=== PATIENT | male | born 1995 | race African-American/Black ===

== ENCOUNTER 2019-06-22 11:02 | Emergency (ER) | payer OTHER ==
[2019-06-22] MEDS ORDERED: ONDANSETRON 4 MG/2 ML VIAL IVP STA (11:37)
[2019-06-22] MEDS ORDERED: SODIUM CHLORIDE 0.9% 1,000 ML IV ONE (11:37)
--- NOTE | 2019-06-22 11:37 | ED Physician Documentation ---
History of Present Illness - Stated complaint Stated Complaint: VOMITING BLOOD/DIZZY - Chief complaint Chief Complaint: Abd Pain - Additonal information Additional information: This is a 24-year-old male who presents with nausea, vomiting, as well as some blood in his vomit. Patient began having cough, runny nose, vomiting and loose stool several days ago, the vomiting usually occurs in the morning and then improves. Today when he vomited he noticed some bright red blood at the end of his vomiting. He also has had some dark or black stools. He has not noticed any blood in his stool. He denies abdominal pain. He was seen by his primary care provider who sent him here for further evaluation. Review of Systems Nose: reports: Rhinorrhea / runny nose Cardiac: denies: Chest pain / pressure Respiratory: reports: Cough GI: reports: Nausea, Vomiting : denies: Dysuria Skin: denies: Rash Neurologic: denies: Generalized weakness Immunocompromised: denies: Immunocompromised PD PAST MEDICAL HISTORY - Past Medical History Past Medical History: No Cardiovascular: None Respiratory: None Neuro: None Endocrine/Autoimmune: None GI: None : None HEENT: None Psych: None Musculoskeletal: None Derm: None - Past Surgical History Past Surgical History: No - Present Medications Home Medications: Ambulatory Orders Medication Instructions Recorded Confirmed Ondansetron Odt [Zofran] 4 mg TL Q6H PRN #10 tablet 06/22/19 - Allergies Allergies/Adverse Reactions: Allergies Allergy/AdvReac Type Severity Reaction Status Date / Time No Known Drug Allergies Allergy Verified 06/22/19 11:08 - Social History Does the pt smoke?: No Smoking Status: Never smoker Does the pt drink ETOH?: No Does the pt have substance abuse?: No - Immunizations Immunizations are current?: Yes - POLST Patient has POLST: No PD ED PE NORMAL - Vitals Vital signs reviewed: Yes - General General: Alert and oriented X 3 - HEENT HEENT: Atraumatic - Neck Neck: Supple, no meningeal sign - Cardiac Cardiac: Other (Regular rate in 80s on my exam, regular rhythm) - Respiratory Respiratory: No respiratory distress, Clear bilaterally - Abdomen Abdomen: Soft, Non tender, Non distended - Rectal Rectal: Other (Small amount of guaiac negative light brown stool in the rectal vault, no masses, no hemorrhoids.) - Derm Derm: Warm and dry - Extremities Extremities: No deformity - Neuro Neuro: Alert and oriented X 3 Results - Vitals Vitals: Oxygen O2 Source Room air - Labs Labs: Laboratory Tests 06/22/19 06/22/19 06/22/19 11:18 13:14 13:14 WBC 6.5 RBC 5.03 Hgb 14.6 Hct 43.2 MCV 85.9 MCH 29.0 MCHC 33.8 RDW 11.8 L Plt Count 168 MPV 9.3 Neut # (Auto) 4.3 Lymph # (Auto) 1.2 L [place] # (Auto) 0.8 Eos # (Auto) 0.1 Baso # (Auto) 0.0 Absolute Nucleated RBC 0.00 Nucleated RBC % 0.0 PT 16.2 H INR 1.5 H Sodium Potassium Chloride Carbon Dioxide Anion Gap BUN Creatinine Estimated GFR (MDRD) Glucose Calcium Total Bilirubin AST ALT Alkaline Phosphatase Total Protein Albumin Globulin Albumin/Globulin Ratio Lipase Urine Color YELLOW Urine Clarity CLEAR Urine pH 7.5 Ur Specific [place] 1.010 Urine Protein NEGATIVE Urine Glucose (UA) NEGATIVE Urine Ketones TRACE Urine Occult Blood NEGATIVE Urine Nitrite NEGATIVE Urine Bilirubin NEGATIVE Urine Urobilinogen 0.2 (NORMAL) Ur Leukocyte Esterase NEGATIVE Ur Microscopic Review NOT INDICATED Urine Culture Comments NOT INDICATED 06/22/19 13:14 WBC RBC Hgb Hct MCV MCH MCHC RDW Plt Count MPV Neut # (Auto) Lymph # (Auto) [place] # (Auto) Eos # (Auto) Baso # (Auto) Absolute Nucleated RBC Nucleated RBC % PT INR Sodium 137 Potassium 4.3 Chloride 103 Carbon Dioxide 28 Anion Gap 6.0 BUN 15 Creatinine 1.0 Estimated GFR (MDRD) 110 Glucose 100 Calcium 8.6 Total Bilirubin 0.7 AST 16 ALT 14 Alkaline Phosphatase 45 Total Protein 7.3 Albumin 4.0 Globulin 3.3 Albumin/Globulin Ratio 1.2 Lipase 32 Urine Color Urine Clarity Urine pH Ur Specific [place] Urine Protein Urine Glucose (UA) Urine Ketones Urine Occult Blood Urine Nitrite Urine Bilirubin Urine Urobilinogen Ur Leukocyte Esterase Ur Microscopic Review Urine Culture Comments PD MEDICAL DECISION MAKING - ED course Complexity details: considered differential (Viral syndrome, gastroenteritis, GI bleed, sandra edwards tear, hemorrhoids) ED course: Pt is well appearing on exam, he was tachycardia in triage but this resolved spontaneously. Labs are unremarkable with normal WBC and Hgb. He has a benign abdominal exam without tenderness or signs of acute abdominal pathology and no signs of blood in his stool. He has had no vomiting while in the ED. He appears to have a viral syndrome, and after several episodes of vomiting likely developed a small sandra edwards tear. He is feeling well and should respond well to supportive care. I discussed return precuations and PCP follow up and patient was discharged with a prescription for zofran. Departure - Departure Disposition: 01 Home, Self Care Clinical Impression: Viral syndrome Hematemesis Qualifiers: Nausea presence: with nausea Qualified Code(s): K92.0 - Hematemesis Condition: Good Instructions: ED Nausea Vomiting Prescriptions: Ondansetron Odt [Zofran] 4 mg TL Q6H PRN #10 tablet PRN Reason: Nausea / Vomiting Comments: You were seen today for vomiting. We do not see signs of blood in your stool. Your hemoglobin was 14.6 and your white blood cell count was 6.5 (both normal). Your electrolytes and urine test were normal. The blood in your vomit is likely a Sandra-Edwards tear, or small tear in the lining of your throat from repeated episodes of vomiting. Overall I think you likely have a virus which is causing your symptoms. You may take the Zofran as prescribed for nausea/vomiting, as well as Tylenol and/or ibuprofen for discomfort and fever. If you are developing worsening symptoms, abdominal pain, or persistent vomiting despite the Zofran, please return to the emergency department. Discharge Date/Time: 06/22/19 14:09
[2019-06-22 11:51] LABS: BILIRUBIN,URINE NEGATIVE (NEGATIVE); GLUCOSE, URINE (UA) NEGATIVE (NEGATIVE); KETONES,URINE (UA) TRACE mg/dL (NEGATIVE); LEUKOCYTE ESTERASE, URINE NEGATIVE (NEGATIVE); NITRITE,URINE NEGATIVE (NEGATIVE); OCCULT BLOOD,URINE NEGATIVE (NEGATIVE); PH,URINE 7.5 PH (5.0-7.5); PROTEIN,URINE NEGATIVE (NEGATIVE); UROBILINOGEN,URINE 0.2 (NORMAL) E.U./dL (NORMAL)
[2019-06-22 11:54] LABS: CLARITY,URINE CLEAR (CLEAR)
[2019-06-22 13:18] LABS: BASOPHILS % (AUTO) 0.3 %; EOSINOPHILS # (AUTO) 0.1 10^3/uL (0.0-0.7); EOSINOPHILS % (AUTO) 1.8 %; HGB - HEMOGLOBIN 14.6 g/dL (14.0-18.0); LYMPHOCYTES # (AUTO) 1.2 10^3/uL (1.5-3.5); MEAN CORPUSCULAR HGB CONC 33.8 g/dL (32.0-36.0); MEAN CORPUSCULAR VOLUME 85.9 fL (80.0-94.0); MEAN PLATELET VOLUME 9.3 fL (7.4-11.4); MONOCYTES # (AUTO) 0.8 10^3/uL (0.0-1.0); MONOCYTES % (AUTO) 12.7 %; NEUTROPHILS # (AUTO) 4.3 10^3/uL (1.5-6.6); PLT - PLATELET COUNT 168 10^3/uL (130-450); RED BLOOD COUNT 5.03 10^6/uL (4.70-6.10); RED CELL DISTRIBUTION WIDTH 11.8 % (12.0-15.0); WHITE BLOOD COUNT 6.5 x10^3/uL (4.8-10.8)
[2019-06-22 13:33] LABS: ALBUMIN/GLOBULIN RATIO 1.2 (1.0-2.2); BILIRUBIN,TOTAL 0.7 mg/dL (0.2-1.0); CALCIUM 8.6 mg/dL (8.5-10.3); TOTAL PROTEIN 7.3 g/dL (6.7-8.2)
[2019-06-22 13:38] LABS: INR 1.5 (0.8-1.2); PT - PROTHROMBIN TIME 16.2 secs (9.9-12.6)
[2019-06-22 14:10] VITALS: BP 122/66
== END 2019-06-22 14:09 | disposition home or self-care (01) ==
LOC: ED 11:02
DX: B34.9 Viral infection, unspecified (principal); K92.0 Hematemesis
CPT/HCPCS: 36415; 80053; 81001; 81003; 83690; 85025; 85610; 87086; 96374; 99283

== ENCOUNTER 2020-03-04 19:34 | Emergency (ER) | payer OTHER ==
[2020-03-04] MEDS ORDERED: SUCRALFATE 1 GM/10 ML UDC PO STA (20:19)
[2020-03-04] MEDS ORDERED: LIDOCAINE VISCOUS 2% 15 ML UDC MM STA (20:19)
[2020-03-04] MEDS ORDERED: MAG HYDROX/AL HYDROX/SIMETH 30 ML UDC PO STA (20:19)
--- NOTE | 2020-03-04 20:27 | ED Physician Documentation ---
History of Present Illness - Stated complaint Stated Complaint: CP - Chief complaint Chief Complaint: Cardiac - History obtained from History obtained from: Patient - History of Present Illness Timing: Today Pain level max: 6 Pain level now: 4 - Additonal information Additional information: States chest pain, feeling like a balloon blowing up in his chest after eating a pot pie today. States vomiting helped. Currently feeling better. No dyspnea. No cardiac history. Nothing makes it worse. No medications at home. Does use caffeinated pre-workout powder regularly. No recent travel. No recent surgery. No recent antibiotics. No history of blood clots. Review of Systems Constitutional: denies: Fever, Chills Nose: denies: Rhinorrhea / runny nose, Congestion Throat: denies: Sore throat Cardiac: denies: Palpitations Respiratory: denies: Dyspnea, Cough, Hemoptysis, Wheezing GI: denies: Nausea, Vomiting, Diarrhea Skin: denies: Rash Musculoskeletal: denies: Neck pain, Extremity pain Neurologic: denies: Focal weakness, Numbness, Head injury PD PAST MEDICAL HISTORY - Past Medical History Past Medical History: No Cardiovascular: None Respiratory: None Neuro: None Endocrine/Autoimmune: None GI: None : None HEENT: None Psych: None Musculoskeletal: None Derm: None - Past Surgical History Past Surgical History: No - Present Medications Home Medications: Ambulatory Orders Medication Instructions Recorded Confirmed Ondansetron Odt [Zofran] 4 mg TL Q6H PRN #10 tablet 06/22/19 - Allergies Allergies/Adverse Reactions: Allergies Allergy/AdvReac Type Severity Reaction Status Date / Time No Known Drug Allergies Allergy Verified 06/22/19 11:08 - Social History Does the pt smoke?: No Smoking Status: Never smoker Does the pt drink ETOH?: No Does the pt have substance abuse?: No - Immunizations Immunizations are current?: Yes - POLST Patient has POLST: No PD ED PE NORMAL - Vitals Vital signs reviewed: Yes - General General: Alert and oriented X 3, No acute distress, Well developed/nourished - HEENT HEENT: PERRL, Moist mucous membranes - Neck Neck: Supple, no meningeal sign - Cardiac Cardiac: RRR, No murmur, Strong equal pulses - Respiratory Respiratory: No respiratory distress, Clear bilaterally - Abdomen Abdomen: Soft, Non tender, Non distended - Derm Derm: Warm and dry - Extremities Extremities: No edema, No calf tenderness / cord - Neuro Neuro: Alert and oriented X 3 - Psych Psych: Normal mood, Normal affect Results - Vitals Vitals: Vital Signs - 24 hr 03/04/20 03/04/20 19:43 20:55 Temperature 36.6 C Heart Rate 104 H 91 Respiratory 16 18 Rate Blood Pressure 146/68 H 114/61 O2 Saturation 99 98 Oxygen O2 Source Room air - EKG (time done) 1940 Rate: Rate (enter#) (101) Rhythm: Sinus tachycardia [place]: Normal Intervals: Normal ID QRS: Normal Ischemia: Normal ST segments PD MEDICAL DECISION MAKING - ED course Complexity details: reviewed results, re-evaluated patient, considered differential (No ST elevation RI, no aortic dissection, no PE, no tension pneumothorax, no aortic aneurysm), d/w patient ED course: Symptoms fully resolved with GI cocktail. Tolerated well. Normal examination here. We will have him avoid caffeinated foods, fatty foods and alcohol. No evidence of cholecystitis. No evidence of PE. No evidence of acute coronary syndrome. No cardiac murmur. No evidence of HOCM. Patient counseled regarding signs and symptoms for which I believe and urgent re-evaluation would be necessary. Patient with good understanding of and agreement to plan and is comfortable going home at this time This document was made in part using voice recognition software. While efforts are made to proofread this document, sound alike and grammatical errors may occur. Departure - Departure Disposition: 01 Home, Self Care Clinical Impression: Chest pain Qualifiers: Chest pain type: unspecified Qualified Code(s): R07.9 - Chest pain, unspecified Condition: Good Instructions: ED Chest Pain Atypical Unkn Cause Follow-Up: your,doctor next week [Other] Comments: Return if you worsen. Follow-up with your doctor next week for further evaluation and care. Your EKG is normal. I do not hear a murmur on your evaluation today. Your doctor may want to perform a echocardiogram next week. Discharge Date/Time: 03/04/20 20:58
[2020-03-04 20:55] VITALS: BP 114/61
== END 2020-03-04 20:58 | disposition home or self-care (01) ==
LOC: ED 19:34
DX: R07.9 Chest pain, unspecified (principal)
CPT/HCPCS: 93005; 99283; 99284; A9270

== ENCOUNTER 2021-10-11 07:13 | Outpatient (CLI) | payer OTHER ==
--- NOTE | 2021-10-11 08:57 | MRI Report ---
PROCEDURE: Shoulder LT W/O INDICATIONS: OSTEOLYSIS TECHNIQUE: Noncontrast oblique coronal T2 fast spin echo with fat saturation, oblique sagittal T1 spin echo and T2 fast spin echo with fat saturation, axial T1 spin echo and T2 fast spin echo with fat saturation t hrough the shoulder. COMPARISON: None. FINDINGS: Image quality: Excellent. Rotator cuff: The supraspinatus, infraspinatus, and subscapularis tendons appear intact throughout. No rotator cuff muscle atrophy on sagittal images. Bones and bursae: No bone marrow contusions or fractures. Mild acromioclavicular joint degeneration. The acromion demonstrates conventional anatomy, without an os acromiale. No pathologic subacromial /subdeltoid bursal fluid is present. Capsule and soft tissues: In the absence of intra-articular contrast, the labrum and glenohumeral li gaments appear intact. The long head of the biceps tendon demonstrates normal location and morpholog y. The rotator interval appears normal, without fibrosis. The coracohumeral ligament is normal in t hickness. IMPRESSION: 1. Acromioclavicular joint osteoarthritis. 2. No rotator cuff tear. Reviewed by: Abiola Parisi MD on 10/11/2021 8:55 AM PST Approved by: Abiola Parisi MD on 10/11/2021 8:55 AM PST Station ID: [id number]
== END 2021-10-11 07:14 | disposition home or self-care (01) ==
LOC: DI 07:13
PROVIDERS: ATTEND Orthopaedic Surgery
DX: M89.512 Osteolysis, left shoulder (principal); M19.012 Primary osteoarthritis, left shoulder

== ENCOUNTER 2021-10-26 18:40 | Emergency (ER) | payer OTHER ==
[2021-10-26] MEDS ORDERED: DEXAMETHASONE 10 MG/ML VIAL IM STA (19:00)
--- NOTE | 2021-10-26 19:06 | ED Physician Documentation ---
History of Present Illness - Stated complaint Stated Complaint: SOA - Chief complaint Chief Complaint: Resp - Additonal information Additional information: 26-year-old male presents to the emergency department for evaluation of difficulty breathing. He did undergo left clavicle surgery today at [facility] in [place]. He did require general endotracheal anesthesia. He states that when he lays flat he feels like his airway closes shut, but sitting upright, he does not have this concern. Denies any history of difficulty with anesthesia. No pertinent past medical history. Currently taking opiate narcotic as well as stool softener and Zofran for nausea.. Review of Systems Constitutional: denies: Fever, Chills Eyes: reports: Reviewed and negative Nose: reports: Reviewed and negative Throat: reports: Other (uvula edema) Cardiac: denies: Chest pain / pressure, Palpitations, Pedal edema Respiratory: reports: Dyspnea GI: reports: Reviewed and negative : reports: Reviewed and negative Skin: reports: Reviewed and negative PD PAST MEDICAL HISTORY - Past Medical History Cardiovascular: None Respiratory: None Neuro: None Endocrine/Autoimmune: None GI: None : None HEENT: None Psych: None Musculoskeletal: None Derm: None - Past Surgical History Past Surgical History: No - Present Medications Home Medications: Ambulatory Orders Medication Instructions Recorded Confirmed Ondansetron Odt [Zofran] 4 mg TL Q6H PRN #10 tablet 06/22/19 - Allergies Allergies/Adverse Reactions: Allergies Allergy/AdvReac Type Severity Reaction Status Date / Time No Known Drug Allergies Allergy Verified 10/26/21 18:47 - Social History Does the pt smoke?: No Smoking Status: Never smoker Does the pt drink ETOH?: No Does the pt have substance abuse?: No - Immunizations Immunizations are current?: Yes - POLST Patient has POLST: No PD ED PE EXPANDED - General General: Alert, No acute distress, Well developed/nourished - HEENT HEENT: PERRL, Pharyngeal erythema (Uvula is elongated and edematous. Mallampati 1). No: Swollen tonsils, Tonsillar exudate, Soft palate petecchiae - Cardiac Cardiac: Regular Rate, Radial strong equal, Pedal strong equal, Cap refill < 2 sec. No: Murmur Present - Respiratory Respiratory: Clear to ausultation miles. No: Labored, Accessory mm use, Retractions, Wheezing - Abdomen Abdomen: Normal Bowel sounds, Tender to palpation - Derm Derm: Normal color, Warm and dry. No: Rash Results - Vitals Vitals: Vital Signs - 24 hr 10/26/21 18:44 Temperature 36 C L Heart Rate 75 Respiratory 16 Rate Blood Pressure 141/61 H O2 Saturation 100 Oxygen O2 Source Room air - Labs Labs: Laboratory Tests 10/26/21 10/26/21 19:15 19:15 WBC 9.2 RBC 5.25 Hgb 15.2 Hct 44.6 MCV 85.0 MCH 29.0 MCHC 34.1 RDW 12.7 Plt Count 213 MPV 9.9 Neut # (Auto) 8.2 H Lymph # (Auto) 0.6 L [place] # (Auto) 0.4 Eos # (Auto) 0.0 Baso # (Auto) 0.0 Absolute Nucleated RBC 0.00 Nucleated RBC % 0.0 Sodium 134 L Potassium 4.2 Chloride 99 L Carbon Dioxide 23 Anion Gap 12.0 BUN 17 Creatinine 1.0 Estimated GFR (MDRD) 109 Glucose 160 H Calcium 9.4 C-React Prot High Sens 2.1 - Rads (name of study) cxr Radiology: Final report received, EMP read contemporaneously (No acute cardiopulmonary process) PD MEDICAL DECISION MAKING - ED course Complexity details: reviewed results, re-evaluated patient, considered differential, d/w patient ED course: 26-year-old male here with difficulty managing his airway when he lays completely flat. He feels like something is blocking off his airway. He incidentally underwent general anesthesia today for repair of a left clavicular erosion. On exam he has isolated edema of the uvula. His soft palate is unremarkable as well as his tonsils. He has normal phonation and normal swallow. Unremarkable cardiopulmonary auscultation. I did consider isolated angioedema but given a normal CRP and sed rate as well as no fever or leukocytosis I feel that this is less likely. I also feel that an acute bacterial infection is less likely given the unremarkable labs. I do suspect that he has edema related to the anesthesia and/or possibly some trauma secondary to the airway. Patient was given a dose of Decadron here in the emergency department. He was chewing on ice chips which he states made his symptoms better. Patient will be discharged home. He is advised to sleep upright at least 45 degrees for the next 2 to 3 days emergent return precautions were discussed for any concerns of stridor or airway distress. Departure - Departure Disposition: 01 Home, Self Care Clinical Impression: Uvular edema Condition: Stable Record reviewed to determine appropriate education?: Yes Comments: Oliverio you are seen today for difficulty breathing especially when you lady completely flat. He had a feeling that your airway was closing off. I am on exam your uvula is edematous. This may be secondary to the airway that was used during your surgery today. We did give you a dose of Decadron which is a steroid that will help reduce inflammation and swelling over the next 72 hours. Your screening labs however were essentially normal. I recommend that you sleep upright either in a recliner or in your bed at least 45 degrees. I would expect the swelling and edema of your uvula to be better over the next 2 to 3 days. If at any point you find that you cannot swallow normally, begin to drool, begin to have severe respiratory distress or stridor as we discussed then you should return immediately to the ER. Continue to take your previously prescribed medications for pain control.
[2021-10-26] MEDS ORDERED: HYDROmorphone 1 MG/ML CARPUJECT IVP STA (19:19)
[2021-10-26 19:23] LABS: BASOPHILS % (AUTO) 0.1 %; HCT - HEMATOCRIT 44.6 % (42.0-52.0); HGB - HEMOGLOBIN 15.2 g/dL (14.0-18.0); LYMPHOCYTES # (AUTO) 0.6 10^3/uL (1.5-3.5); LYMPHOCYTES % (AUTO) 6.4 %; MEAN CORPUSCULAR HGB CONC 34.1 g/dL (32.0-36.0); MEAN PLATELET VOLUME 9.9 fL (7.4-11.4); MONOCYTES # (AUTO) 0.4 10^3/uL (0.0-1.0); MONOCYTES % (AUTO) 3.8 %; NEUTROPHILS # (AUTO) 8.2 10^3/uL (1.5-6.6); NEUTROPHILS % (AUTO) 89.5 %; PLT - PLATELET COUNT 213 10^3/uL (130-450); RED BLOOD COUNT 5.25 10^6/uL (4.70-6.10); RED CELL DISTRIBUTION WIDTH 12.7 % (12.0-15.0); WHITE BLOOD COUNT 9.2 x10^3/uL (4.8-10.8)
[2021-10-26 19:30] LABS: CALCIUM 9.4 mg/dL (8.5-10.3); CRP HIGH SENSITIVITY 2.1 mg/L; POTASSIUM 4.2 mmol/L (3.5-5.0)
[2021-10-26] MEDS ORDERED: ONDANSETRON ODT 4 MG TABLET TL STA (19:39)
--- NOTE | 2021-10-26 20:18 | XRAY Report ---
PROCEDURE: Chest 1 View X-Ray INDICATIONS: chest pain TECHNIQUE: One view of the chest was acquired. COMPARISON: None. FINDINGS: Surgical changes and devices: None. Lungs and pleura: No pleural effusions or pneumothorax. Lungs are clear. Mediastinum: Mediastinal contours appear normal. Heart size is normal. Bones and chest wall: No suspicious bony lesions. Overlying soft tissues appear unremarkable. IMPRESSION: No acute cardiopulmonary abnormality. Reviewed by: Ruben Gordon MD on 10/26/2021 8:16 PM [facility] Approved by: Ruben Gordon MD on 10/26/2021 8:16 PM [facility] Station ID: [id number]
[2021-10-26 20:47] VITALS: BP 130/77
== END 2021-10-26 20:46 | disposition home or self-care (01) ==
LOC: ED 18:40
DX: K13.79 Other lesions of oral mucosa (principal); R06.09 Other forms of dyspnea; M96.89 Other intraoperative and postprocedural complications and disorders of the musculoskeletal system; Y83.8 Other surgical procedures as the cause of abnormal reaction of the patient, or of later complication, without mention of misadventure at the time of the procedure
CPT/HCPCS: 36415; 71045; 80048; 85025; 86141; 86160; 96372; 96374; 99282; 99284; J1170; Q0162